=== PATIENT | female | born 1990 | race Caucasian/White ===

== ENCOUNTER → 2017-02-12 | Outpatient (CLI) | payer BC | LOC: MW.CHOBGYN 09:28 | PROVIDERS: ATTEND Nurse Practitioner Women's Health | DX: N89.8 Other specified noninflammatory disorders of vagina (principal) | CPT/HCPCS: 87480; 87510; 87660 ==

== ENCOUNTER 2019-03-06 02:06 | Inpatient (IN) | payer BC ==
[2019-03-06] MEDS ORDERED: Ampicillin 2 GM in Sodium Chloride 0.9% 100 ML IV ONE (03:04)
[2019-03-06] MEDS ORDERED: Tranexamic Acid 1,000 MG in Sodium Chloride 0.9% 100 ML IV PRN (03:04)
[2019-03-06] MEDS ORDERED: Methylergonovine 0.2 MG/1 ML Amp IM PRN (03:04)
[2019-03-06] MEDS ORDERED: Misoprostol 200 MCG Tab PO PRN (03:04)
[2019-03-06] MEDS ORDERED: Carboprost Tromethamine 250 MCG/1 ML Amp IM PRN (03:04)
[2019-03-06] MEDS ORDERED: Sodium Chloride 0.9% 10 ML Syringe FLUSH PRN (03:04)
[2019-03-06] MEDS ORDERED: Water For Irrigation,Sterile 1,000 ML Container IRR PRN (03:04)
[2019-03-06] MEDS ORDERED: Nalbuphine 10 MG/1 ML Vial IVPUSH PRN (03:04)
[2019-03-06] MEDS ORDERED: Sodium Chloride 0.9% 2.5 ML Syringe FLUSH PRN (03:04)
[2019-03-06] MEDS ORDERED: Lidocaine 1% 50 ML MDV INJECT PRN (03:04)
[2019-03-06] MEDS ORDERED: Butorphanol 1 MG/ML SDV IVPUSH PRN (03:04)
[2019-03-06] MEDS ORDERED: Sodium Chloride 0.9% 10 ML SDV IV PRN (03:04)
[2019-03-06] MEDS ORDERED: Oxytocin/0.9 % Sodium Chloride 30 UNIT/500 ML BAG IV SCH ×3 (03:15→16:00)
[2019-03-06] MEDS: Lactated Ringers 1,000 ML IV SCH ×4 (03:54→17:52)
[2019-03-06] MEDS ORDERED: Terbutaline 1 MG/ML SDV SUBCUT PRN (07:28)
[2019-03-06] MEDS ORDERED: Misoprostol 25 MCG (1/4 of 100 MCG) Tab PO PRN (07:28)
[2019-03-06] MEDS: Ampicillin 1 GM in Sodium Chloride 0.9% 50 ML IV SCH ×4 (07:41→20:01)
[2019-03-06] MEDS ORDERED: Lidocaine HCl/EPINEPHrine 5 ML IJ ONE (12:16)
--- NOTE | 2019-03-06 12:27 | PCM.PREANE ---
Preanesthetic Assessment - Anesthesia/Transfusion/Family Hx Anesthesia History: Prior Anesthesia Without Reaction Family History of Anesthesia Reaction: No Transfusion History: No Prior Transfusion(s) - Review of Systems General: No Symptoms Pulmonary: No Symptoms Cardiovascular: No Symptoms Gastrointestinal: No Symptoms Neurological: No Symptoms Other: Reports: None - Physical Assessment Height: 5 ft 6 in Weight: 87.997 kg ASA Class: 2 Mental Status: Alert & Oriented x3 Airway Class: Mallampati = 2 Dentition: Reports: Normal Dentition Thyro-Mental Finger Breadths: 3 Mouth Opening Finger Breadths: 3 ROM/Head Extension: Full Lungs: Clear to Auscultation, Normal Respiratory Effort Cardiovascular: Regular Rate, Regular Rhythm - Lab Values: Laboratory Last Values WBC 10.69 K/uL (4.0-11.0) 03/06/19 03:21 RBC 3.86 M/uL (4.30-5.90) L 03/06/19 03:21 Hgb 11.1 g/dL (12.0-16.0) L 03/06/19 03:21 Hct 32.2 % (36.0-46.0) L 03/06/19 03:21 MCV 83.4 fL (80.0-98.0) 03/06/19 03:21 MCH 28.8 pg (27.0-32.0) 03/06/19 03:21 MCHC 34.5 g/dL (31.0-37.0) 03/06/19 03:21 RDW Std Deviation 40.9 fl (28.0-62.0) 03/06/19 03:21 RDW Coeff of Maxine 14 % (11.0-15.0) 03/06/19 03:21 Plt Count 205 K/uL (150-400) 03/06/19 03:21 MPV 10.80 fL (7.40-12.00) 03/06/19 03:21 Nucleated RBC % 0.0 /100WBC 03/06/19 03:21 Nucleated RBCs # 0 K/uL 03/06/19 03:21 Membrane Rupture POSITIVE 03/06/19 02:04 Blood Type O POSITIVE 03/06/19 03:21 Antibody Screen NEGATIVE 03/06/19 03:21 - Allergies Allergies/Adverse Reactions: Allergies Allergy/AdvReac Type Severity Reaction Status Date / Time tobramycin Allergy Facial Verified 03/06/19 07:39 Swelling - Acknowledgements Anesthesia Type Planned: Epidural Pt an Appropriate Candidate for the Planned Anesthesia: Yes Alternatives and Risks of Anesthesia Discussed w Pt/Guardian: Yes Pt/Guardian Understands and Agrees with Anesthesia Plan: Yes PreAnesthesia Questionnaire - Past Health History Medical/Surgical History: Denies Medical/Surgical History HEENT History: Reports: Impaired Vision Cardiovascular History: Reports: None Respiratory History: Reports: None Gastrointestinal History: Reports: Colon Polyp, GERD Genitourinary History: Reports: None 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 Endocrine/Metabolic History: Reports: Obesity/BMI 30+ Hematologic History: Reports: Anemia Immunologic History: Reports: None Oncologic (Cancer) History: Reports: None Dermatologic History: Reports: None - Infectious Disease History Infectious Disease History: Reports: Chicken Pox, Mononucleosis - Past Surgical History HEENT Surgical History: Reports: Adenoidectomy, Tonsillectomy GI Surgical History: Reports: Colonoscopy, Other (See Below) Other GI Surgeries/Procedures: benign polyps Musculoskeletal Surgical History: Reports: Arthroscopic Knee, Other (See Below) Other Musculoskeletal Surgeries/Procedures:: left ACL repair done 2005 - SUBSTANCE USE Smoking Status *Q: Former Smoker Tobacco Use Within Last Twelve Months: Cigarettes Second Hand Smoke Exposure: No Recreational Drug Use History: Yes Recreational Drug Type: Reports: Marijuana/Hashish - HOME MEDS Home Medications: Home Meds Acetaminophen [Tylenol] 325 mg PO PRN 03/06/19 [History] Vits #93/Iron Fum/FA [ Formula Tablet] 1 each PO DAILY [History] - CURRENT (IN HOUSE) MEDS Current Meds: Current Medications Butorphanol Tartrate (Stadol) 1 mg IVPUSH Q1H PRN PRN Reason: Pain Carboprost Tromethamine (Hemabate Ds) 250 mcg IM ASDIRECTED PRN PRN Reason: Post Hemorrhage Tranexamic Acid 1,000 mg/ (Sodium Chloride) 110 mls @ 660 mls/hr IV ONETIME PRN PRN Reason: Bleeding Lactated Ringer's (Ringers, Lactated) 1,000 mls @ 150 mls/hr IV ASDIRECTED DOTTIE Last Admin: 03/06/19 03:54 Dose: 150 mls/hr Oxytocin/Sodium Chloride (Oxytocin 30 Unit/500 Ml-Ns) 30 unit in 500 mls @ 500 mls/hr IV TITRATE DOTTIE Ampicillin Sodium 1 gm/ Sodium (Chloride) 50 mls @ 100 mls/hr IV Q4H [facility] Last Admin: 03/06/19 11:52 Dose: 100 mls/hr Oxytocin/Sodium Chloride (Oxytocin 30 Unit/500 Ml-Ns) 30 unit in 500 mls @ 2 mls/hr IV TITRATE DOTTIE; Protocol Lidocaine HCl (Xylocaine 1%) 50 ml INJECT ONETIME PRN PRN Reason: Laceration repair Methylergonovine Maleate (Methergine) 0.2 mg IM ASDIRECTED PRN PRN Reason: Post Hemorrhage Misoprostol (Cytotec) 200 mcg PO ONETIME PRN PRN Reason: Post Hemorrhage Misoprostol (Cytotec) 25 mcg PO ONETIME PRN PRN Reason: Cervical Ripening Last Admin: 03/06/19 07:41 Dose: 25 mcg Nalbuphine HCl (Nubain) 10 mg IVPUSH Q1H PRN PRN Reason: Pain (severe 7-10) Sodium Chloride (Saline Flush) 10 ml FLUSH ASDIRECTED PRN PRN Reason: Keep Vein Open Sodium Chloride (Saline Flush) 2.5 ml FLUSH ASDIRECTED PRN PRN Reason: Keep Vein Open Sodium Chloride (Normal Saline) 10 ml IV ASDIRECTED PRN PRN Reason: IV Use Sterile Water (Sterile Water For Irrigation) 1,000 ml IRR ASDIRECTED PRN PRN Reason: delivery Terbutaline Sulfate (Brethine) 0.25 mg SUBCUT ASDIRECTED PRN PRN Reason: Tacysystole Stop: 03/07/19 07:29 Discontinued Medications Ampicillin Sodium 2 gm/ Sodium (Chloride) 100 mls @ 200 mls/hr IV ONETIME ONE Stop: 03/06/19 03:33 Last Admin: 03/06/19 03:58 Dose: 200 mls/hr Fentanyl/Bupivacaine HCl (Jxlrimia-Buxvi-Sk 2 Mcg/Ml-0.125%) Confirm Administered Dose 100 mls @ as directed .ROUTE .STK-MED ONE Stop: 03/06/19 12:17 Lidocaine/Epinephrine (Lidocaine 1.5%-Epi 1:200,000) Confirm Administered Dose 5 ml IJ .STK-MED ONE Stop: 03/06/19 12:17
--- NOTE | 2019-03-06 22:15 | PCM.DEL ---
L & D Note - General Info Date of Service: 03/06/19 - Delivery Note Labor: Spontaneous Cervical Ripening Method: Misoprostil, Oxytocin Delivery Outcome: Livebirth Infant Delivery Method: Spontaneous Vaginal Delivery-Single Presentation: Vertex Nuchal Cord: None Anesthesia Type: Epidural Episiotomy Type: None Laceration: 1st Degree, Labial Suture size: 4-0 (right labial laceration was bleeding from a small area. Small suture placed. No other bleeding and other labial lacerations unrepaired. ) - General Info Date of Service: 03/06/19 - Patient Data Weight - Most Recent: 87.997 kg Lab Results Last 24 Hours: Laboratory Results - last 24 hr 03/06/19 03/06/19 03/06/19 Range/Units 02:04 03:21 03:21 WBC 10.69 (4.0-11.0) K/uL RBC 3.86 L (4.30-5.90) M/uL Hgb 11.1 L (12.0-16.0) g/dL Hct 32.2 L (36.0-46.0) % MCV 83.4 (80.0-98.0) fL MCH 28.8 (27.0-32.0) pg MCHC 34.5 (31.0-37.0) g/dL RDW Std Deviation 40.9 (28.0-62.0) fl RDW Coeff of Maxine 14 (11.0-15.0) % Plt Count 205 (150-400) K/uL MPV 10.80 (7.40-12.00) fL Nucleated RBC % 0.0 /100WBC Nucleated RBCs # 0 K/uL Membrane Rupture POSITIVE Blood Type O POSITIVE Antibody Screen NEGATIVE Med Orders - Current: Current Medications Butorphanol Tartrate (Stadol) 1 mg IVPUSH Q1H PRN PRN Reason: Pain Carboprost Tromethamine (Hemabate Ds) 250 mcg IM ASDIRECTED PRN PRN Reason: Post Hemorrhage Tranexamic Acid 1,000 mg/ (Sodium Chloride) 110 mls @ 660 mls/hr IV ONETIME PRN PRN Reason: Bleeding Lactated Ringer's (Ringers, Lactated) 1,000 mls @ 150 mls/hr IV ASDIRECTED DOTTIE Last Admin: 03/06/19 17:52 Dose: 150 mls/hr Oxytocin/Sodium Chloride (Oxytocin 30 Unit/500 Ml-Ns) 30 unit in 500 mls @ 500 mls/hr IV TITRATE DOTTIE Ampicillin Sodium 1 gm/ Sodium (Chloride) 50 mls @ 100 mls/hr IV Q4H DOTTIE Last Admin: 03/06/19 20:01 Dose: 100 mls/hr Oxytocin/Sodium Chloride (Oxytocin 30 Unit/500 Ml-Ns) 30 unit in 500 mls @ 2 mls/hr IV TITRATE DOTTIE; Protocol Oxytocin/Sodium Chloride (Oxytocin 30 Unit/500 Ml-Ns) 30 unit in 500 mls @ 2 mls/hr IV TITRATE DOTTIE; Protocol Last Titration: 03/06/19 19:03 Dose: 6 munits/min, 6 mls/hr Lidocaine HCl (Xylocaine 1%) 50 ml INJECT ONETIME PRN PRN Reason: Laceration repair Methylergonovine Maleate (Methergine) 0.2 mg IM ASDIRECTED PRN PRN Reason: Post Hemorrhage Misoprostol (Cytotec) 200 mcg PO ONETIME PRN PRN Reason: Post Hemorrhage Misoprostol (Cytotec) 25 mcg PO ONETIME PRN PRN Reason: Cervical Ripening Last Admin: 03/06/19 07:41 Dose: 25 mcg Nalbuphine HCl (Nubain) 10 mg IVPUSH Q1H PRN PRN Reason: Pain (severe 7-10) Sodium Chloride (Saline Flush) 10 ml FLUSH ASDIRECTED PRN PRN Reason: Keep Vein Open Sodium Chloride (Saline Flush) 2.5 ml FLUSH ASDIRECTED PRN PRN Reason: Keep Vein Open Sodium Chloride (Normal Saline) 10 ml IV ASDIRECTED PRN PRN Reason: IV Use Sterile Water (Sterile Water For Irrigation) 1,000 ml IRR ASDIRECTED PRN PRN Reason: delivery Terbutaline Sulfate (Brethine) 0.25 mg SUBCUT ASDIRECTED PRN PRN Reason: Tacysystole Stop: 03/07/19 07:29 Discontinued Medications Ampicillin Sodium 2 gm/ Sodium (Chloride) 100 mls @ 200 mls/hr IV ONETIME ONE Stop: 03/06/19 03:33 Last Admin: 03/06/19 03:58 Dose: 200 mls/hr Fentanyl/Bupivacaine HCl (Gbctyrft-Xxqix-Az 2 Mcg/Ml-0.125%) Confirm Administered Dose 100 mls @ as directed .ROUTE .STK-MED ONE Stop: 03/06/19 12:17 Fentanyl/Bupivacaine HCl (Uchtncqz-Lntxy-Tf 2 Mcg/Ml-0.125%) Confirm Administered Dose 100 mls @ as directed .ROUTE .STK-MED ONE Stop: 03/06/19 21:31 Lidocaine/Epinephrine (Lidocaine 1.5%-Epi 1:200,000) Confirm Administered Dose 5 ml IJ .STK-MED ONE Stop: 03/06/19 12:17 - Problem List & Annotations (1) Vaginal delivery SNOMED Code(s): 343339614 Code(s): O80 - ENCOUNTER FOR FULL-TERM UNCOMPLICATED DELIVERY Status: Acute Current Visit: Yes (2) Rupture of membranes with delay of delivery SNOMED Code(s): 720291609, 299620640 Code(s): O42.90 - ADEOLA ROM, 7TH0 BETW RUPT & ONST LABR, UNSP WEEKS OF GEST Status: Acute Current Visit: Yes - Problem List Review Problem List Initiated/Reviewed/Updated: Yes - My Orders Last 24 Hours: My Active Orders 03/06/19 02:18 Patient Status [ADT] Routine Non Stress Test [RC] PER UNIT ROUTINE Up ad Linda [RC] ASDIRECTED Vaginal Exam [RC] Click to Edit Vital Signs [RC] PER UNIT ROUTINE Resuscitation Status Routine 03/06/19 03:04 Patient Status [ADT] Routine Heart Tones [RC] CONTINUOUS Non Stress Test [RC] PER UNIT ROUTINE May Shower [RC] ASDIRECTED Notify Provider [RC] PRN Butorphanol [Stadol] 1 mg IVPUSH Q1H PRN Carboprost Tromethamine [Hemabate DS] 250 mcg IM ASDIRECTED PRN Lidocaine 1% [Xylocaine 1%] 50 ml INJECT ONETIME PRN Methylergonovine [Methergine] 0.2 mg IM ASDIRECTED PRN Nalbuphine [Nubain] 10 mg IVPUSH Q1H PRN Sodium Chloride 0.9% [Normal Saline] 10 ml IV ASDIRECTED PRN Sodium Chloride 0.9% [Saline Flush] 10 ml FLUSH ASDIRECTED PRN Sodium Chloride 0.9% [Saline Flush] 2.5 ml FLUSH ASDIRECTED PRN Tranexamic Acid [Cyklokapron] 1,000 mg Sodium Chloride 0.9% [Normal Saline] 100 ml IV ONETIME Water For Irrigation,Sterile [Sterile Water for Irrigation] 1,000 ml IRR ASDIRECTED PRN miSOPROStol [Cytotec] 200 mcg PO ONETIME PRN Scalp Electrode [WOMSER] Per Unit Routine Peripheral IV Insertion Adult [OM.PC] Routine 03/06/19 03:15 Lactated Ringers [Ringers, Lactated] 1,000 ml IV ASDIRECTED Oxytocin/0.9 % Sodium Chloride [Oxytocin 30 Unit/500 ML-NS] 30 unit in 500 ml IV TITRATE 03/06/19 07:28 Bedrest Bathroom Privileges [RC] ASDIRECTED Communication Order [RC] ASDIRECTED Communication Order [RC] ASDIRECTED Communication Order [RC] ASDIRECTED Notify Provider [RC] PRN Notify Provider [RC] STAT Oxygen Therapy [RC] ASDIRECTED Vaginal Exam [RC] PRN Terbutaline [Brethine] 0.25 mg SUBCUT ASDIRECTED PRN miSOPROStol [Cytotec] 25 mcg PO ONETIME PRN 03/06/19 07:30 Oxytocin/0.9 % Sodium Chloride [Oxytocin 30 Unit/500 ML-NS] 30 unit in 500 ml IV TITRATE Medication Administration Instruction [OM.PC] Q3H 03/06/19 16:00 Oxytocin/0.9 % Sodium Chloride [Oxytocin 30 Unit/500 ML-NS] 30 unit in 500 ml IV TITRATE 03/06/19 Breakfast Clear Liquid Diet [DIET] - Assessment Assessment:: Healthy . Pt had ROM prior to onset of labor. oral cytotec x1, and then oxytocin. - Plan Plan:: Mother and baby both well, to PP recovery.
[2019-03-06] MEDS ORDERED: Ibuprofen 400 MG Tab PO PRN (22:17)
[2019-03-06] MEDS ORDERED: Bisacodyl 10 MG Supp RECTAL PRN (22:17)
[2019-03-06] MEDS ORDERED: oxyCODONE 5 MG Tab PO PRN (22:17)
[2019-03-06] MEDS ORDERED: Acetaminophen 500 MG Tab PO PRN ×2 (22:17)
[2019-03-06] MEDS ORDERED: Benzocaine/Menthol 20%-0.5% Spray 78 GM Cannister TOP PRN (22:17)
[2019-03-06] MEDS ORDERED: Lanolin 100% Cream 7 GM Tube TOP PRN (22:17)
[2019-03-06] MEDS ORDERED: Witch Hazel Medicated Pads 40/Jar TOP PRN (22:17)
[2019-03-06] MEDS: Docusate Sodium 100 MG Cap PO PRN (23:03)
[2019-03-06] MEDS: Ibuprofen 800 MG Tab PO PRN (23:03)
[2019-03-07] MEDS: Ibuprofen 800 MG Tab PO PRN ×2 (07:43→20:32)
[2019-03-07] MEDS: Docusate Sodium 100 MG Cap PO PRN ×2 (08:21→20:32)
--- NOTE | 2019-03-07 08:23 | PCM.PNPP ---
- General Info Date of Service: 03/07/19 Functional Status: Reports: Pain Controlled, Tolerating Diet, Ambulating, Urinating - Review of Systems General: Denies: Fever, Weakness, Fatigue Pulmonary: Denies: Shortness of Breath, Pleuritic Chest Pain, Cough Cardiovascular: Denies: Chest Pain, Palpitations, Dyspnea on Exertion Gastrointestinal: Denies: Abdominal Pain Genitourinary: Denies: Dysuria - General Info Date of Service: 03/07/19 - Patient Data Vital Signs - Most Recent: Last Vital Signs Temp 36.6 C 03/07/19 07:45 Pulse 71 03/07/19 07:45 Resp 16 03/07/19 07:45 BP 121/76 03/07/19 07:45 Pulse Ox 96 03/07/19 07:45 Weight - Most Recent: 87.997 kg Lab Results - Last 24 Hours: Laboratory Results - last 24 hr 03/07/19 Range/Units 05:39 Hgb 9.6 L (12.0-16.0) g/dL Hct 28.0 L (36.0-46.0) % Med Orders - Current: Current Medications Acetaminophen (Tylenol Extra Strength) 500 mg PO Q4H PRN PRN Reason: Pain Acetaminophen (Tylenol Extra Strength) 1,000 mg PO Q4H PRN PRN Reason: Pain Benzocaine/Menthol (Dermoplast Pain Relief 20%-0.5% [place]) 78 gm TOP ASDIRECTED PRN PRN Reason: Perineal Comfort Measure Last Admin: 03/06/19 23:05 Dose: 1 canister Bisacodyl (Dulcolax) 10 mg RECTAL ONETIME PRN PRN Reason: Constipation Docusate Sodium (Colace) 100 mg PO BID PRN PRN Reason: Constipation Last Admin: 03/06/19 23:03 Dose: 100 mg Emollient Ointment (Lansinoh Hpa) 0 gm TOP ASDIRECTED PRN PRN Reason: Sore Nipples Last Admin: 03/06/19 23:07 Dose: 1 tube Ibuprofen (Motrin) 400 mg PO Q4H PRN PRN Reason: Pain Ibuprofen (Motrin) 800 mg PO Q6H PRN PRN Reason: Pain Last Admin: 03/07/19 07:43 Dose: 800 mg Oxycodone HCl (Oxycodone) 5 mg PO Q2H PRN PRN Reason: Pain Witch Maeve (Tucks) 1 pad TOP ASDIRECTED PRN PRN Reason: comfort care Last Admin: 03/06/19 23:06 Dose: 1 tub Discontinued Medications Butorphanol Tartrate (Stadol) 1 mg IVPUSH Q1H PRN PRN Reason: Pain Carboprost Tromethamine (Hemabate Ds) 250 mcg IM ASDIRECTED PRN PRN Reason: Post Hemorrhage Tranexamic Acid 1,000 mg/ (Sodium Chloride) 110 mls @ 660 mls/hr IV ONETIME PRN PRN Reason: Bleeding Ampicillin Sodium 2 gm/ Sodium (Chloride) 100 mls @ 200 mls/hr IV ONETIME ONE Stop: 03/06/19 03:33 Last Admin: 03/06/19 03:58 Dose: 200 mls/hr Lactated Ringer's (Ringers, Lactated) 1,000 mls @ 150 mls/hr IV ASDIRECTED DOTTIE Last Admin: 03/06/19 17:52 Dose: 150 mls/hr Oxytocin/Sodium Chloride (Oxytocin 30 Unit/500 Ml-Ns) 30 unit in 500 mls @ 500 mls/hr IV TITRATE DOTTIE Last Admin: 03/06/19 21:43 Dose: 500 mls/hr Ampicillin Sodium 1 gm/ Sodium (Chloride) 50 mls @ 100 mls/hr IV Q4H DOTTIE Last Admin: 03/06/19 20:01 Dose: 100 mls/hr Oxytocin/Sodium Chloride (Oxytocin 30 Unit/500 Ml-Ns) 30 unit in 500 mls @ 2 mls/hr IV TITRATE DOTTIE; Protocol Fentanyl/Bupivacaine HCl (Gbtzvabe-Bvrrx-Nt 2 Mcg/Ml-0.125%) Confirm Administered Dose 100 mls @ as directed .ROUTE .STK-MED ONE Stop: 03/06/19 12:17 Oxytocin/Sodium Chloride (Oxytocin 30 Unit/500 Ml-Ns) 30 unit in 500 mls @ 2 mls/hr IV TITRATE DOTTIE; Protocol Last Titration: 03/06/19 21:43 Dose: 0 munits/min, 0 mls/hr Fentanyl/Bupivacaine HCl (Kyinfouu-Otmqs-Pg 2 Mcg/Ml-0.125%) Confirm Administered Dose 100 mls @ as directed .ROUTE .STK-MED ONE Stop: 03/06/19 21:31 Lidocaine HCl (Xylocaine 1%) 50 ml INJECT ONETIME PRN PRN Reason: Laceration repair Lidocaine/Epinephrine (Lidocaine 1.5%-Epi 1:200,000) Confirm Administered Dose 5 ml IJ .STK-MED ONE Stop: 03/06/19 12:17 Methylergonovine Maleate (Methergine) 0.2 mg IM ASDIRECTED PRN PRN Reason: Post Hemorrhage Misoprostol (Cytotec) 200 mcg PO ONETIME PRN PRN Reason: Post Hemorrhage Misoprostol (Cytotec) 25 mcg PO ONETIME PRN PRN Reason: Cervical Ripening Last Admin: 03/06/19 07:41 Dose: 25 mcg Nalbuphine HCl (Nubain) 10 mg IVPUSH Q1H PRN PRN Reason: Pain (severe 7-10) Sodium Chloride (Saline Flush) 10 ml FLUSH ASDIRECTED PRN PRN Reason: Keep Vein Open Sodium Chloride (Saline Flush) 2.5 ml FLUSH ASDIRECTED PRN PRN Reason: Keep Vein Open Sodium Chloride (Normal Saline) 10 ml IV ASDIRECTED PRN PRN Reason: IV Use Sterile Water (Sterile Water For Irrigation) 1,000 ml IRR ASDIRECTED PRN PRN Reason: delivery Last Admin: 03/06/19 22:16 Dose: 1,000 ml Terbutaline Sulfate (Brethine) 0.25 mg SUBCUT ASDIRECTED PRN PRN Reason: Tacysystole Stop: 03/07/19 07:29 - Interaction Infant Disposition, : in Room with Family Infant Interaction: Holding Infant Infant Feeding: Breastfed Infant; Nursed Well Support Person: Significant Other - Recovery Exam Fundal Tone: Firm Fundal Level: 1 Fingerbreadths Below Umbilicus Fundal Placement: Midline Lochia Amount: Small Lochia Color: Rubra/Red Bladder Status: Voiding Urinary Elimination: Voided - Exam General: Alert, Oriented Neck: Supple Lungs: Clear to Auscultation, Normal Respiratory Effort Cardiovascular: Regular Rate, Regular Rhythm GI/Abdominal Exam: Normal Bowel Sounds, Soft, Non-Tender, No Distention, No Mass Extremities: Normal Inspection, Normal Range of Motion, Normal Capillary Refill , Pedal Edema (trace) Skin: Warm, Dry, Intact - Problem List Review Problem List Initiated/Reviewed/Updated: Yes - Assessment Assessment:: PPD #1 s/p . Minimal pain and lochia. Breast feeding well. GBS + status. Anticipate discharge home tomorrow. - Plan Plan:: Continue post op cares. Anticipate discharge home tomorrow.
--- NOTE | 2019-03-08 07:25 | PCM48HPAN ---
Post Anesthesia Note - EVALUATION WITHIN 48HRS OF ANESTHETIC Vital Signs in Normal Range: Yes Patient Participated in Evaluation: Yes Respiratory Function Stable: Yes Airway Patent: Yes Cardiovascular Function Stable: Yes Hydration Status Stable: Yes Pain Control Satisfactory: Yes Nausea and Vomiting Control Satisfactory: Yes Mental Status Recovered: Yes Resp Rate: 16
[2019-03-08] MEDS: Ibuprofen 800 MG Tab PO PRN ×2 (08:04→15:47)
[2019-03-08] MEDS: Docusate Sodium 100 MG Cap PO PRN (08:06)
--- NOTE | 2019-03-08 10:43 | PCM.PNPP ---
- General Info Date of Service: 03/08/19 Functional Status: Reports: Pain Controlled, Tolerating Diet, Ambulating, Urinating - Review of Systems General: Denies: Fever, Weakness Pulmonary: Denies: Shortness of Breath Cardiovascular: Denies: Chest Pain, Palpitations, Lightheadedness Gastrointestinal: Denies: Abdominal Pain, Nausea, Vomiting Genitourinary: Denies: Flank Pain Musculoskeletal: Reports: No Symptoms Skin: Reports: No Symptoms Neurological: Reports: No Symptoms - General Info Date of Service: 03/08/19 - Patient Data Vital Signs - Most Recent: Last Vital Signs Temp 36.8 C 03/08/19 08:00 Pulse 71 03/08/19 08:00 Resp 16 03/08/19 08:00 BP 114/69 03/08/19 08:00 Pulse Ox 98 03/08/19 08:00 Weight - Most Recent: 87.997 kg Med Orders - Current: Current Medications Acetaminophen (Tylenol Extra Strength) 500 mg PO Q4H PRN PRN Reason: Pain Acetaminophen (Tylenol Extra Strength) 1,000 mg PO Q4H PRN PRN Reason: Pain Benzocaine/Menthol (Dermoplast Pain Relief 20%-0.5% [place]) 78 gm TOP ASDIRECTED PRN PRN Reason: Perineal Comfort Measure Last Admin: 03/06/19 23:05 Dose: 1 canister Bisacodyl (Dulcolax) 10 mg RECTAL ONETIME PRN PRN Reason: Constipation Docusate Sodium (Colace) 100 mg PO BID PRN PRN Reason: Constipation Last Admin: 03/08/19 08:06 Dose: 100 mg Emollient Ointment (Lansinoh Hpa) 0 gm TOP ASDIRECTED PRN PRN Reason: Sore Nipples Last Admin: 03/06/19 23:07 Dose: 1 tube Ibuprofen (Motrin) 400 mg PO Q4H PRN PRN Reason: Pain Ibuprofen (Motrin) 800 mg PO Q6H PRN PRN Reason: Pain Last Admin: 03/08/19 08:04 Dose: 800 mg Oxycodone HCl (Oxycodone) 5 mg PO Q2H PRN PRN Reason: Pain Witch Maeve (Tucks) 1 pad TOP ASDIRECTED PRN PRN Reason: comfort care Last Admin: 03/06/19 23:06 Dose: 1 tub Discontinued Medications Butorphanol Tartrate (Stadol) 1 mg IVPUSH Q1H PRN PRN Reason: Pain Carboprost Tromethamine (Hemabate Ds) 250 mcg IM ASDIRECTED PRN PRN Reason: Post Hemorrhage Tranexamic Acid 1,000 mg/ (Sodium Chloride) 110 mls @ 660 mls/hr IV ONETIME PRN PRN Reason: Bleeding Ampicillin Sodium 2 gm/ Sodium (Chloride) 100 mls @ 200 mls/hr IV ONETIME ONE Stop: 03/06/19 03:33 Last Admin: 03/06/19 03:58 Dose: 200 mls/hr Lactated Ringer's (Ringers, Lactated) 1,000 mls @ 150 mls/hr IV ASDIRECTED DOTTIE Last Admin: 03/06/19 17:52 Dose: 150 mls/hr Oxytocin/Sodium Chloride (Oxytocin 30 Unit/500 Ml-Ns) 30 unit in 500 mls @ 500 mls/hr IV TITRATE DOTTIE Last Admin: 03/06/19 21:43 Dose: 500 mls/hr Ampicillin Sodium 1 gm/ Sodium (Chloride) 50 mls @ 100 mls/hr IV Q4H DOTTIE Last Admin: 03/06/19 20:01 Dose: 100 mls/hr Oxytocin/Sodium Chloride (Oxytocin 30 Unit/500 Ml-Ns) 30 unit in 500 mls @ 2 mls/hr IV TITRATE DOTTIE; Protocol Fentanyl/Bupivacaine HCl (Ijvlokei-Guldp-Gx 2 Mcg/Ml-0.125%) Confirm Administered Dose 100 mls @ as directed .ROUTE .STK-MED ONE Stop: 03/06/19 12:17 Oxytocin/Sodium Chloride (Oxytocin 30 Unit/500 Ml-Ns) 30 unit in 500 mls @ 2 mls/hr IV TITRATE DOTTIE; Protocol Last Titration: 03/06/19 21:43 Dose: 0 munits/min, 0 mls/hr Fentanyl/Bupivacaine HCl (Boiantwb-Mblbz-Vm 2 Mcg/Ml-0.125%) Confirm Administered Dose 100 mls @ as directed .ROUTE .STK-MED ONE Stop: 03/06/19 21:31 Lidocaine HCl (Xylocaine 1%) 50 ml INJECT ONETIME PRN PRN Reason: Laceration repair Lidocaine/Epinephrine (Lidocaine 1.5%-Epi 1:200,000) Confirm Administered Dose 5 ml IJ .STK-MED ONE Stop: 03/06/19 12:17 Methylergonovine Maleate (Methergine) 0.2 mg IM ASDIRECTED PRN PRN Reason: Post Hemorrhage Misoprostol (Cytotec) 200 mcg PO ONETIME PRN PRN Reason: Post Hemorrhage Misoprostol (Cytotec) 25 mcg PO ONETIME PRN PRN Reason: Cervical Ripening Last Admin: 03/06/19 07:41 Dose: 25 mcg Nalbuphine HCl (Nubain) 10 mg IVPUSH Q1H PRN PRN Reason: Pain (severe 7-10) Sodium Chloride (Saline Flush) 10 ml FLUSH ASDIRECTED PRN PRN Reason: Keep Vein Open Sodium Chloride (Saline Flush) 2.5 ml FLUSH ASDIRECTED PRN PRN Reason: Keep Vein Open Sodium Chloride (Normal Saline) 10 ml IV ASDIRECTED PRN PRN Reason: IV Use Sterile Water (Sterile Water For Irrigation) 1,000 ml IRR ASDIRECTED PRN PRN Reason: delivery Last Admin: 03/06/19 22:16 Dose: 1,000 ml Terbutaline Sulfate (Brethine) 0.25 mg SUBCUT ASDIRECTED PRN PRN Reason: Tacysystole Stop: 03/07/19 07:29 - Infant Interaction Disposition, : in Room with Family Interaction: Holding Infant Infant Feeding: Breastfed Infant; Nursed Well Support Person: Significant Other - Recovery Exam Fundal Tone: Firm Fundal Level: 1 Fingerbreadths Below Umbilicus Fundal Placement: Midline Lochia Amount: Scant Lochia Color: Rubra/Red Perineum Description: Other (see below) Other Perinuem Description: First degree tear Episiotomy/Laceration: Approximated Bladder Status: Voiding Urinary Elimination: Voided - Exam General: Alert, Oriented Lungs: Normal Respiratory Effort Cardiovascular: Regular Rate, Regular Rhythm GI/Abdominal Exam: Normal Bowel Sounds, Soft, Non-Tender Extremities: Normal Inspection, Normal Range of Motion, Non-Tender, No Pedal Edema, Normal Capillary Refill Skin: Warm, Dry, Intact Neurological: No New Focal Deficit Psy/Mental Status: Alert, Normal Affect, Normal Mood - Problem List & Annotations (1) Vaginal delivery SNOMED Code(s): 287584468 Code(s): O80 - ENCOUNTER FOR FULL-TERM UNCOMPLICATED DELIVERY Status: Acute Current Visit: Yes - Problem List Review Problem List Initiated/Reviewed/Updated: Yes - Assessment Assessment:: PPD #2s/p . - Plan Plan:: Patient doing well overall, discharge to home today. Follow up at [facility] 6 weeks. INfection and bleeding warnings reviewed. Discharge instructions reviewed.
== END 2019-03-08 21:08 | disposition home or self-care (01) | DRG 560 ==
LOC: MW.OBCHECK 02:06 → MW.OB 02:11 → MW.OBCHECK 03:04 → MW.OB 03:04 → OBSVTOIN 21:40 → MW.OB 03-07 02:22
PROVIDERS: ADMIT Obstetrics & Gynecology; ATTEND Obstetrics & Gynecology
PROC: 10E0XZZ Delivery of Products of Conception, External Approach (ICD-10-PCS; principal; 2019-03-06)
PROC: 0UQMXZZ Repair Vulva, External Approach (ICD-10-PCS; principal; 2019-03-06)
PROC: 00HU33Z Insertion of Infusion Device into Spinal Canal, Percutaneous Approach (ICD-10-PCS; 2019-03-06)
PROC: 3E0R3BZ Introduction of Anesthetic Agent into Spinal Canal, Percutaneous Approach (ICD-10-PCS; 2019-03-06)
DX: O99.824 Streptococcus B carrier state complicating childbirth (principal); Z37.0 Single live birth; Z3A.39 39 weeks gestation of pregnancy; O70.0 First degree perineal laceration during delivery; O42.92 Full-term premature rupture of membranes, unspecified as to length of time between rupture and onset of labor; Z86.010 Personal history of colon polyps; O99.62 Diseases of the digestive system complicating childbirth; K21.9 Gastro-esophageal reflux disease without esophagitis; O99.214 Obesity complicating childbirth; E66.9 Obesity, unspecified; O99.02 Anemia complicating childbirth; D64.9 Anemia, unspecified; Z87.891 Personal history of nicotine dependence; Z88.1 Allergy status to other antibiotic agents
CPT/HCPCS: 36415; 51702; 59025; 59409; 84112; 85014; 85018; 85027; 86850; 86900; 86901; A9270-GY; J0290; J2590; J7030; J7050; J7120

== ENCOUNTER 2021-09-18 14:34 | Inpatient (IN) | payer BC ==
[2021-09-18] MEDS: Lactated Ringers 1,000 ML IV SCH ×4 (14:46→23:32)
[2021-09-18] MEDS ORDERED: Sodium Chloride 0.9% 2.5 ML Syringe FLUSH PRN (14:56)
[2021-09-18] MEDS ORDERED: Carboprost Tromethamine 250 MCG/1 ML Amp IM PRN (14:56)
[2021-09-18] MEDS ORDERED: Sodium Chloride 0.9% 10 ML Syringe FLUSH PRN (14:56)
[2021-09-18] MEDS ORDERED: Sodium Chloride 0.9% 10 ML SDV IV PRN (14:56)
[2021-09-18] MEDS ORDERED: Methylergonovine 0.2 MG/1 ML Amp IM PRN (14:56)
[2021-09-18] MEDS ORDERED: Butorphanol 1 MG/ML SDV IVPUSH PRN (14:56)
[2021-09-18] MEDS ORDERED: Tranexamic Acid 1,000 MG in Sodium Chloride 0.9% 100 ML IV PRN (14:56)
[2021-09-18] MEDS ORDERED: Lidocaine 1% 50 ML MDV INJECT PRN (14:56)
[2021-09-18] MEDS ORDERED: Ondansetron 4 MG/2 ML SDV IVPUSH PRN (14:56)
[2021-09-18] MEDS ORDERED: Terbutaline 1 MG/ML SDV SUBCUT PRN (14:56)
[2021-09-18] MEDS ORDERED: Water For Irrigation,Sterile 1,000 ML Container IRR PRN (14:56)
[2021-09-18] MEDS ORDERED: Misoprostol 25 MCG (1/4 of 100 MCG) Tab VAG PRN (14:56)
[2021-09-18] MEDS ORDERED: Misoprostol 200 MCG Tab PO PRN (14:56)
[2021-09-18] MEDS ORDERED: Nalbuphine 10 MG/1 ML Vial IVPUSH PRN (14:56)
[2021-09-18] MEDS ORDERED: Oxytocin/0.9 % Sodium Chloride 30 UNIT/500 ML BAG IV SCH ×2 (15:00)
[2021-09-18] MEDS ORDERED: Ropivacaine HCl/PF 200 ML ONE (21:15)
--- NOTE | 2021-09-18 21:33 | PCM.PREANE ---
Preanesthetic Assessment - Anesthesia/Transfusion/Family Hx Anesthesia History: Prior Anesthesia Without Reaction Family History of Anesthesia Reaction: No Transfusion History: No Prior Transfusion(s) - Review of Systems General: No Symptoms Pulmonary: No Symptoms, Other (Former Smoker) Cardiovascular: No Symptoms Gastrointestinal: No Symptoms, Other (GERD) Neurological: No Symptoms Other: Reports: None - Physical Assessment NPO Status Date: 09/18/21 NPO Status Time: 15:00 Height: 1.66 m Weight: 78.018 kg ASA Class: 2 Mental Status: Alert & Oriented x3 Airway Class: Mallampati = 2 Dentition: Reports: Normal Dentition Thyro-Mental Finger Breadths: 3 Mouth Opening Finger Breadths: 3 ROM/Head Extension: Full Lungs: Clear to Auscultation, Normal Respiratory Effort Cardiovascular: Regular Rate, Regular Rhythm - Lab Values: Laboratory Last Values WBC 9.13 K/uL (4.0-11.0) 09/18/21 14:45 RBC 4.00 M/uL (4.30-5.90) L 09/18/21 14:45 Hgb 11.8 g/dL (12.0-16.0) L 09/18/21 14:45 Hct 33.3 % (36.0-46.0) L 09/18/21 14:45 MCV 83.3 fL (80.0-98.0) 09/18/21 14:45 MCH 29.5 pg (27.0-32.0) 09/18/21 14:45 MCHC 35.4 g/dL (31.0-37.0) 09/18/21 14:45 RDW Std Deviation 39.2 fl (28.0-62.0) 09/18/21 14:45 RDW Coeff of Maxine 13 % (11.0-15.0) 09/18/21 14:45 Plt Count 205 K/uL (150-400) 09/18/21 14:45 MPV 10.80 fL (7.40-12.00) 09/18/21 14:45 Nucleated RBC % 0.0 /100WBC 09/18/21 14:45 Nucleated RBCs # 0 K/uL 09/18/21 14:45 Blood Type O POSITIVE 09/18/21 14:45 Antibody Screen NEGATIVE 09/18/21 14:45 - Allergies Allergies/Adverse Reactions: Allergies Allergy/AdvReac Type Severity Reaction Status Date / Time tobramycin Allergy Facial Verified 09/18/21 14:54 Swelling - Blood Blood Available: Yes Product(s) Available: PRBC (Type and Screen) - Anesthesia Plan Pre-Op Medication Ordered: None - Acknowledgements Anesthesia Type Planned: Epidural Pt an Appropriate Candidate for the Planned Anesthesia: Yes Alternatives and Risks of Anesthesia Discussed w Pt/Guardian: Yes Pt/Guardian Understands and Agrees with Anesthesia Plan: Yes PreAnesthesia Questionnaire - Past Health History Medical/Surgical History: Denies Medical/Surgical History HEENT History: Reports: Impaired Vision, Other (See Below) Other HEENT History: 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 ulcerative colitis, not currently being treated. 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 Endocrine/Metabolic History: Reports: Obesity/BMI 30+ Hematologic History: Reports: Anemia, Iron Deficiency Immunologic History: Reports: None Oncologic (Cancer) History: Reports: None Dermatologic History: Reports: None - Infectious Disease History Infectious Disease History: Reports: Chicken Pox, Mononucleosis, Novel Coronavirus - Past Surgical History HEENT Surgical History: Reports: Adenoidectomy, Tonsillectomy GI Surgical History: Reports: Colonoscopy, Other (See Below) Other GI Surgeries/Procedures: benign polyps, 2011. Musculoskeletal Surgical History: Reports: Arthroscopic Knee, Other (See Below) Other Musculoskeletal Surgeries/Procedures:: left ACL repair done 2005 - SUBSTANCE USE Tobacco Use Status *Q: Former Tobacco User Tobacco Use Within Last Twelve Months: Cigarettes Second Hand Smoke Exposure: No Recreational Drug Use History: Yes Recreational Drug Type: Reports: Marijuana/Hashish Recreational Drug Last Use: 10/2018 - HOME MEDS Home Medications: Home Meds Acetaminophen [Tylenol] 325 mg PO Q4H PRN 03/06/19 [History] Vits #93/Iron Fum/FA [ Formula Tablet] 1 each PO DAILY 03/06/19 [History] - CURRENT (IN HOUSE) MEDS Current Meds: Current Medications Butorphanol Tartrate (Butorphanol 1 Mg/Ml Sdv) 1 mg IVPUSH Q1H PRN PRN Reason: Pain (severe 7-10) Last Admin: 09/18/21 20:30 Dose: 1 mg Documented by: Carboprost Tromethamine (Carboprost Tromethamine 250 Mcg/1 Ml Amp) 250 mcg IM ASDIRECTED PRN PRN Reason: Post Hemorrhage Oxytocin/Sodium Chloride (Oxytocin 30 Unit In Ns 0.9% 500 Ml Premix) 30 unit in 500 mls @ 999 mls/hr IV TITRATE DOTTIE Tranexamic Acid 1,000 mg/ (Sodium Chloride) 110 mls @ 660 mls/hr IV ONETIME PRN PRN Reason: Bleeding Oxytocin/Sodium Chloride (Oxytocin 30 Unit In Ns 0.9% 500 Ml Premix) 30 unit in 500 mls @ 2 mls/hr IV TITRATE DOTTIE; Protocol Lactated Ringer's (Ringers, Lactated) 1,000 mls @ 150 mls/hr IV ASDIRECTED DOTTIE Last Admin: 09/18/21 21:18 Dose: 150 mls/hr Documented by: Lidocaine HCl (Lidocaine 1% 50 Ml Mdv) 50 ml INJECT ONETIME PRN PRN Reason: Laceration repair Methylergonovine Maleate (Methylergonovine 0.2 Mg/1 Ml Amp) 0.2 mg IM ASDIRECTED PRN PRN Reason: Post Hemorrhage Misoprostol (Misoprostol 200 Mcg Tab) 200 mcg PO ONETIME PRN PRN Reason: Post Hemorrhage Misoprostol (Misoprostol 25 Mcg (1/4 Of 100 Mcg) Tab) 25 mcg VAG ONETIME PRN PRN Reason: Cervical Ripening Last Admin: 09/18/21 15:52 Dose: 25 mcg Documented by: Nalbuphine HCl (Nalbuphine 10 Mg/1 Ml Vial) 10 mg IVPUSH Q1H PRN PRN Reason: Pain (severe 7-10) Ondansetron HCl (Ondansetron 4 Mg/2 Ml Sdv) 4 mg IVPUSH Q6H PRN PRN Reason: Nausea/Vomiting Sodium Chloride (Sodium Chloride 0.9% 10 Ml Syringe) 10 ml FLUSH ASDIRECTED PRN PRN Reason: Keep Vein Open Sodium Chloride (Sodium Chloride 0.9% 2.5 Ml Syringe) 2.5 ml FLUSH ASDIRECTED PRN PRN Reason: Keep Vein Open Sodium Chloride (Sodium Chloride 0.9% 10 Ml Sdv) 10 ml IV ASDIRECTED PRN PRN Reason: IV Use Sterile Water (Water For Irrigation,Sterile 1,000 Ml Container) 1,000 ml IRR ASDIRECTED PRN PRN Reason: delivery Terbutaline Sulfate (Terbutaline 1 Mg/Ml Sdv) 0.25 mg SUBCUT ASDIRECTED PRN PRN Reason: Tacysystole Discontinued Medications Ropivacaine (Naropin 0.2%) Confirm Administered Dose 200 mls @ as directed .ROUTE .[facility] Stop: 09/18/21 21:16
--- NOTE | 2021-09-18 21:35 | PCM.SN.2 ---
Time Documentation - Pre-Procedure Checklist Attending Provider Aware: Yes Chart Reviewed: Yes Consent Signed: Yes Labs Reviewed: Yes VS/FHR Reviewed: Yes Patient Identification Confirmation Method: Reports: Chart Visual, Verbal Patient Pt an Appropriate Candidate for the Planned Anesthesia: Yes Alternatives and Risks of Anesthesia Discussed w Pt/Guardian: Yes - Procedure Procedure Start Date: 09/18/21 Procedure Start Time: 21:[address]: Reports: Blood Pressure, Heart Rate, SPO2 Functional IV: Yes Safety Measures: Reports: Patient Identified, Procedure Verified, Site Verified, Procedure Time Out Patient Position: Reports: Sitting Prep: Reports: Betadine x3 Local Anesthetic: Reports: Intradermal Wheal w Lidocaine 1% (3 ML) Regional Placement Level: Reports: L3-4 Needle: Reports: 17 g Touhy Approach: Reports: Midline Technique: Reports: ALEXI Glass Syringe ALEXI Needle Depth (cm): 5 cm Parasthesia: Reports: None Fluid Obtained: Reports: None Catheter Depth at Skin (cm): 13 cm Test Dose Time: 21:10 Test Dose Medication: Reports: Lidocaine 1.5% w Epinephrine 1:200,000 (5ML) Test Dose Response: Reports: Negative Loading Dose Time: 21:23 Loading Dose Medication: Ropivicaine 0.2% Loading Dose Patient Position: Supine Continuous Infusion Start Time: 21:23 Continuous Infusion Medication: Ropivicaine 0.2% Continuous Infusion Rate: 12 Continuous Infusion PCS Bolus Option: 6 Continuous Infusion Lockout Dose (cc/hr): 15 Patient Position Post Placement: Reports: Supline/DAVIS Post-procedure Pain Level: 4 Level Achieved: t4 VS and FHR Monitored in Unit Post Placement: Yes Procedure End Date: 09/18/21 Procedure End Time: 22:02 Procedure Comment: Sterile technique used throughout.
[2021-09-18] MEDS ORDERED: ePHEDrine 50 MG/ML SDV IVPUSH PRN (21:36)
--- NOTE | 2021-09-18 21:36 | PCM.POSTAN ---
POST ANESTHESIA ASSESSMENT - MENTAL STATUS Mental Status: Alert, Oriented - RESPIRATORY Respiratory Status: Respiratory Rate WNL, Airway Patent, O2 Saturation Stable - CARDIOVASCULAR CV Status: Pulse Rate WNL, Blood Pressure Stable - GASTROINTESTINAL GI Status: No Symptoms - POST OP HYDRATION Hydration Status: Adequate & Stable
[2021-09-18] MEDS ORDERED: Ropivacaine/PF 400 MG/200 ML PCA EPIDUR SCH (21:45)
[2021-09-18] MEDS ORDERED: Sodium Chloride 0.9% 20 ML ONE (22:52)
[2021-09-18] MEDS ORDERED: ePHEDrine 50 MG/ML SDV ONE (22:52)
--- NOTE | 2021-09-18 22:55 | PCM.SN.2 ---
Time Documentation - Pre-Procedure Checklist Attending Provider Aware: Yes Chart Reviewed: Yes Consent Signed: Yes Labs Reviewed: Yes VS/FHR Reviewed: Yes Patient Identification Confirmation Method: Reports: Chart Visual, Verbal Patient Pt an Appropriate Candidate for the Planned Anesthesia: Yes Alternatives and Risks of Anesthesia Discussed w Pt/Guardian: Yes - Procedure Procedure Start Date: 09/18/21 Procedure Start Time: 22:[address]: Reports: Blood Pressure, Heart Rate, SPO2 Functional IV: Yes Safety Measures: Reports: Patient Identified, Procedure Verified, Site Verified, Procedure Time Out Patient Position: Reports: Sitting Prep: Reports: Betadine x3 Local Anesthetic: Reports: Intradermal Wheal w Lidocaine 1% (3 ml) Regional Placement Level: Reports: L3-4 Needle: Reports: 17 g Touhy Approach: Reports: Midline Technique: Reports: ALEXI Glass Syringe ALEXI Needle Depth (cm): 6.5 cm Parasthesia: Reports: None Fluid Obtained: Reports: None Catheter Depth at Skin (cm): 15 cm Test Dose Time: 22:41 Test Dose Medication: Reports: Lidocaine 1.5% w Epinephrine 1:200,000 (5 ml) Test Dose Response: Reports: Negative Loading Dose Time: 22:47 Loading Dose Medication: Ropivicaine 0.2% Loading Dose Patient Position: Supine Continuous Infusion Start Time: 22:47 Continuous Infusion Medication: Ropivicaine 0.2% Continuous Infusion Rate: 12 Continuous Infusion PCS Bolus Option: 6 Continuous Infusion Lockout Dose (cc/hr): 15 Patient Position Post Placement: Reports: Supline/DAVIS Post-procedure Pain Level: 4 Level Achieved: T4 VS and FHR Monitored in Unit Post Placement: Yes Procedure End Date: 09/18/21 Procedure End Time: 23:27 Procedure Comment: Pt stated to no releif with epidural despide two 6 ml bolus doses. Catheter removed with tip intact and replaced with current epidural. Steril technique maintained.
[2021-09-18] MEDS ORDERED: Ondansetron 4 MG/2 ML SDV ONE (22:57)
--- NOTE | 2021-09-19 03:20 | PCM.DEL ---
L & D Note - General Info Date of Service: 09/19/21 Mother's Due Date: 10/01/21 - Delivery Note Labor: Induced by Oxytocin (PROM with induction) Cervical Ripening Method: Misoprostil Delivery Outcome: Livebirth Delivery Mode: Spontaneous Presentation: Left Occiput Anterior (RHONDA) Nuchal Cord: None Prep: Other Anesthesia Type: Epidural Episiotomy Type: None Laceration: None Placenta: Intact, Spontaneous Cord: 3 Vessels Estimated Blood Loss: 200 Resuscitation Needed: No Kelley: Suctioned Score 1 min: 9 Score 5 min: 10 - General Info Date of Service: 09/19/21 - Patient Data Weight - Most Recent: 78.018 kg Lab Results Last 24 Hours: Laboratory Results - last 24 hr 09/18/21 09/18/21 Range/Units 14:45 14:45 WBC 9.13 (4.0-11.0) K/uL RBC 4.00 L (4.30-5.90) M/uL Hgb 11.8 L (12.0-16.0) g/dL Hct 33.3 L (36.0-46.0) % MCV 83.3 (80.0-98.0) fL MCH 29.5 (27.0-32.0) pg MCHC 35.4 (31.0-37.0) g/dL RDW Std Deviation 39.2 (28.0-62.0) fl RDW Coeff of Maxine 13 (11.0-15.0) % Plt Count 205 (150-400) K/uL MPV 10.80 (7.40-12.00) fL Nucleated RBC % 0.0 /100WBC Nucleated RBCs # 0 K/uL Blood Type O POSITIVE Antibody Screen NEGATIVE Med Orders - Current: Current Medications Butorphanol Tartrate (Butorphanol 1 Mg/Ml Sdv) 1 mg IVPUSH Q1H PRN PRN Reason: Pain (severe 7-10) Last Admin: 09/18/21 20:30 Dose: 1 mg Documented by: Carboprost Tromethamine (Carboprost Tromethamine 250 Mcg/1 Ml Amp) 250 mcg IM ASDIRECTED PRN PRN Reason: Post Hemorrhage Ephedrine Sulfate (Ephedrine 50 Mg/Ml Sdv) 10 mg IVPUSH Q1M PRN PRN Reason: Hypotension Oxytocin/Sodium Chloride (Oxytocin 30 Unit In Ns 0.9% 500 Ml Premix) 30 unit in 500 mls @ 999 mls/hr IV TITRATE DOTTIE Tranexamic Acid 1,000 mg/ (Sodium Chloride) 110 mls @ 660 mls/hr IV ONETIME PRN PRN Reason: Bleeding Oxytocin/Sodium Chloride (Oxytocin 30 Unit In Ns 0.9% 500 Ml Premix) 30 unit in 500 mls @ 2 mls/hr IV TITRATE DOTTIE; Protocol Last Titration: 09/19/21 02:22 Dose: 16 munits/min, 16 mls/hr Documented by: Lactated Ringer's (Ringers, Lactated) 1,000 mls @ 150 mls/hr IV ASDIRECTED DOTTIE Last Admin: 09/18/21 23:32 Dose: 150 mls/hr Documented by: Lidocaine HCl (Lidocaine 1% 50 Ml Mdv) 50 ml INJECT ONETIME PRN PRN Reason: Laceration repair Methylergonovine Maleate (Methylergonovine 0.2 Mg/1 Ml Amp) 0.2 mg IM ASDIRECTED PRN PRN Reason: Post Hemorrhage Miscellaneous Medication (Phenylephrine Hcl In 0.9% Nacl 1 Mg/10 Ml Syringe) 0.1 mg IVPUSH Q1M PRN PRN Reason: Hypotension Misoprostol (Misoprostol 200 Mcg Tab) 200 mcg PO ONETIME PRN PRN Reason: Post Hemorrhage Misoprostol (Misoprostol 25 Mcg (1/4 Of 100 Mcg) Tab) 25 mcg VAG ONETIME PRN PRN Reason: Cervical Ripening Last Admin: 09/18/21 15:52 Dose: 25 mcg Documented by: Nalbuphine HCl (Nalbuphine 10 Mg/1 Ml Vial) 10 mg IVPUSH Q1H PRN PRN Reason: Pain (severe 7-10) Ondansetron HCl (Ondansetron 4 Mg/2 Ml Sdv) 4 mg IVPUSH Q6H PRN PRN Reason: Nausea/Vomiting Last Admin: 09/18/21 22:59 Dose: 4 mg Documented by: Ropivacaine (Ropivacaine/Pf 400 Mg/200 Ml [employer] Technical Systems Specialist) 400 mg EPIDUR ASDIRECTED DOTTIE Sodium Chloride (Sodium Chloride 0.9% 10 Ml Syringe) 10 ml FLUSH ASDIRECTED PRN PRN Reason: Keep Vein Open Sodium Chloride (Sodium Chloride 0.9% 2.5 Ml Syringe) 2.5 ml FLUSH ASDIRECTED PRN PRN Reason: Keep Vein Open Sodium Chloride (Sodium Chloride 0.9% 10 Ml Sdv) 10 ml IV ASDIRECTED PRN PRN Reason: IV Use Sterile Water (Water For Irrigation,Sterile 1,000 Ml Container) 1,000 ml IRR ASDIRECTED PRN PRN Reason: delivery Terbutaline Sulfate (Terbutaline 1 Mg/Ml Sdv) 0.25 mg SUBCUT ASDIRECTED PRN PRN Reason: Tacysystole Discontinued Medications Ephedrine Sulfate (Ephedrine 50 Mg/Ml Sdv) Confirm Administered Dose 50 mg .ROUTE .STK-MED ONE Stop: 09/18/21 22:53 Ropivacaine (Naropin 0.2%) Confirm Administered Dose 200 mls @ as directed .ROUTE .STK-MED ONE Stop: 09/18/21 21:16 Last Admin: 09/18/21 23:29 Dose: Not Given Documented by: Sodium Chloride (Normal Saline) Confirm Administered Dose 20 mls @ as directed .ROUTE .STK-MED ONE Stop: 09/18/21 22:53 Ondansetron HCl (Ondansetron 4 Mg/2 Ml Sdv) Confirm Administered Dose 4 mg .ROUTE .STK-MED ONE Stop: 09/18/21 22:58 - Problem List & Annotations (1) Rupture of membranes with delay of delivery SNOMED Code(s): 12802673 Code(s): O42.90 - ADEOLA ROM, 7TH0 BETW RUPT & ONST LABR, UNSP WEEKS OF GEST Status: Acute Current Visit: Yes (2) Vaginal delivery SNOMED Code(s): 614755248 Code(s): O80 - ENCOUNTER FOR FULL-TERM UNCOMPLICATED DELIVERY Status: Acute Current Visit: Yes - Problem List Review Problem List Initiated/Reviewed/Updated: Yes - My Orders Last 24 Hours: My Active Orders 09/18/21 14:45 RPR (SYPHILIS SERO) W/ RFLX [REF] Routine 09/18/21 14:56 Patient Status [ADT] Routine Bedrest Bathroom Privileges [RC] ASDIRECTED Communication Order [RC] ASDIRECTED Communication Order [RC] ASDIRECTED Communication Order [RC] ASDIRECTED Heart Tones [RC] CONTINUOUS Non Stress Test [RC] PER UNIT ROUTINE May Shower [RC] ASDIRECTED Notify Provider [RC] PRN Notify Provider [RC] PRN Notify Provider [RC] PRN Notify Provider [RC] STAT Oxygen Therapy [RC] ASDIRECTED Peripheral IV Care [RC] PRN Up ad Linda [RC] ASDIRECTED Vaginal Exam [RC] PRN Vaginal Exam [RC] PRN Vital Signs [RC] PER UNIT ROUTINE Butorphanol [Stadol] 1 mg IVPUSH Q1H PRN Carboprost Tromethamine [Hemabate DS] 250 mcg IM ASDIRECTED PRN Lidocaine 1% [Xylocaine 1%] 50 ml INJECT ONETIME PRN Methylergonovine [Methergine] 0.2 mg IM ASDIRECTED PRN Nalbuphine [Nubain] 10 mg IVPUSH Q1H PRN Ondansetron [Zofran] 4 mg IVPUSH Q6H PRN Sodium Chloride 0.9% [Normal Saline] 10 ml IV ASDIRECTED PRN Sodium Chloride 0.9% [Saline Flush] 10 ml FLUSH ASDIRECTED PRN Sodium Chloride 0.9% [Saline Flush] 2.5 ml FLUSH ASDIRECTED PRN Terbutaline [Brethine] 0.25 mg SUBCUT ASDIRECTED PRN Tranexamic Acid [Cyklokapron] 1,000 mg Sodium Chloride 0.9% [Normal Saline] 100 ml IV ONETIME Water For Irrigation,Sterile [Sterile Water for Irrigation] 1,000 ml IRR ASDIRECTED PRN miSOPROStoL [Cytotec] 200 mcg PO ONETIME PRN miSOPROStoL [Cytotec] 25 mcg VAG ONETIME PRN Scalp Electrode [WOMSER] Per Unit Routine Peripheral IV Insertion Adult [OM.PC] Routine Resuscitation Status Routine 09/18/21 15:00 Lactated Ringers [Ringers, Lactated] 1,000 ml IV ASDIRECTED Oxytocin/0.9 % Sodium Chloride [Oxytocin 30 Unit in NS 0.9% 500 ML Premix] 30 unit in 500 ml IV TITRATE Oxytocin/0.9 % Sodium Chloride [Oxytocin 30 Unit in NS 0.9% 500 ML Premix] 30 unit in 500 ml IV TITRATE Medication Administration Instruction [OM.PC] Q3H
[2021-09-19] MEDS ORDERED: Lanolin 100% Cream 7 GM Tube TOP PRN (03:21)
[2021-09-19] MEDS ORDERED: Methylergonovine 0.2 MG/1 ML Amp IM PRN (03:21)
[2021-09-19] MEDS ORDERED: Tranexamic Acid 1,000 MG in Sodium Chloride 0.9% 100 ML IV PRN (03:21)
[2021-09-19] MEDS ORDERED: Benzocaine/Menthol 20%-0.5% Spray 78 GM Cannister TOP PRN (03:21)
[2021-09-19] MEDS ORDERED: Witch Hazel Medicated Pads 40/Jar TOP PRN (03:21)
[2021-09-19] MEDS ORDERED: Ibuprofen 400 MG Tab PO PRN (03:21)
[2021-09-19] MEDS ORDERED: Bisacodyl 10 MG Supp RECTAL PRN (03:21)
[2021-09-19] MEDS ORDERED: Docusate Sodium 100 MG Cap PO PRN (03:21)
[2021-09-19] MEDS ORDERED: Acetaminophen 500 MG Tab PO PRN ×2 (03:21)
--- NOTE | 2021-09-19 04:42 | OR ---
SURGEON: Ashley Orantes M.D. DATE OF PROCEDURE: 09/19/2021 PREOPERATIVE DIAGNOSES: 38 and 3/7 weeks' intrauterine , premature rupture of membranes with induction of labor, group B strep negative. POSTOPERATIVE DIAGNOSES: 38 and 3/7 weeks' intrauterine , premature rupture of membranes with induction of labor, group B strep negative. PROCEDURE: Cytotec, Pitocin induction of labor, term spontaneous vaginal delivery. PRIMARY SURGEON: Ashlye Orantes M.D. ANESTHESIA: Epidural. ESTIMATED BLOOD LOSS: Less than 200 mL. FINDINGS: Liveborn female. scores 9 and 10, weight pending. Placenta spontaneous, Briggs intact with 3 vessels. Perineum intact. COMPLICATIONS: None known. DISPOSITION: Mother and baby in LDR in good condition. BRIEF HISTORY: This is a 30-year-old female, G2, P1-0-0-1. She presents at 38 2/7 weeks' gestation, spontaneous rupture of membranes at 4:30 a.m., clear fluid noted. She presented to clinic later in the day with gross rupture, positive AmniSure. She was sent to Labor and Delivery. She was 1 to 2 cm, 50% effaced, -1 station. She received a single dose of Cytotec, and 6 hours later, she was 2 to 3 cm dilated. She had category 1 heart tones. She was started on Pitocin, which was continued up to a maximum of 60 milliunits per minute. At that point, she did progress to complete. DESCRIPTION OF PROCEDURE: With the patient in dorsal lithotomy position, under adequate epidural analgesia, the patient pushed over 3 contractions to a 5+ station, at which time the head was delivered spontaneously and atraumatically over the perineum with support with subsequent delivery of the infant's shoulders and body without any difficulty. The infant was bulb suctioned by nose and mouth, and after 1 minute, the cord was doubly clamped and cut, and the infant was handed to the mother in the presence of the nurse attending delivery. The was a liveborn female, scores 9 and 10, weight pending. Cord blood was collected for cord ABGs as well as routine cord blood sampling. Pitocin was initiated after delivery of the to assist with delivery of the placenta which was delivered spontaneously, Briggs intact, with 3 vessels. Upon inspection the pelvis and perineum, there were no periurethral, vaginal sidewall, cervical, rectal, or perineal lacerations. EBL was less than 200 mL. There were no known complications. Mother and baby remained in LDR in good condition. MARLEE ALLISON /[id number] MTDD
[2021-09-19] MEDS: Ibuprofen 800 MG Tab PO PRN ×2 (09:03→14:27)
--- NOTE | 2021-09-19 13:24 | PCM48HPAN ---
Post Anesthesia Note - EVALUATION WITHIN 48HRS OF ANESTHETIC Vital Signs in Normal Range: Yes Patient Participated in Evaluation: Yes Respiratory Function Stable: Yes Airway Patent: Yes Cardiovascular Function Stable: Yes Hydration Status Stable: Yes Pain Control Satisfactory: Yes Nausea and Vomiting Control Satisfactory: Yes Mental Status Recovered: Yes Vital Signs: Last Vital Signs Temp 36.1 C 09/19/21 08:30 Pulse 56 L 09/19/21 08:30 Resp BP 132/80 09/19/21 08:30 Pulse Ox - COMMENTS/OBSERVATIONS Free Text/Narrative:: Pt states to being satisfied with epidural, denies signs and symptoms of infection or neurological compromise, and states to being able to walk with no weakness.
[2021-09-20] MEDS: Ibuprofen 800 MG Tab PO PRN ×2 (00:04→06:29)
--- NOTE | 2021-09-20 09:22 | PCM.PNPP ---
- General Info Date of Service: 09/20/21 Functional Status: Reports: Pain Controlled, Tolerating Diet, Ambulating, Urinating - Review of Systems General: Reports: Fatigue. Denies: Fever, Weakness Pulmonary: Denies: Shortness of Breath Cardiovascular: Denies: Chest Pain, Palpitations, Lightheadedness Gastrointestinal: Denies: Abdominal Pain, Nausea, Vomiting Genitourinary: Denies: Flank Pain Musculoskeletal: Reports: No Symptoms Skin: Reports: No Symptoms Neurological: Reports: No Symptoms Psychiatric: Reports: No Symptoms - General Info Date of Service: 09/20/21 - Patient Data Vital Signs - Most Recent: Last Vital Signs Temp 36.4 C 09/20/21 08:00 Pulse 66 09/20/21 08:00 Resp 18 09/20/21 08:00 BP 120/77 09/20/21 08:00 Pulse Ox 97 09/20/21 08:00 Weight - Most Recent: 78.018 kg Lab Results - Last 24 Hours: Laboratory Results - last 24 hr 09/20/21 Range/Units 05:04 Hgb 9.1 L (12.0-16.0) g/dL Hct 26.7 L (36.0-46.0) % Med Orders - Current: Current Medications Acetaminophen (Acetaminophen 500 Mg Tab) 500 mg PO Q4H PRN PRN Reason: Pain (mild 1-3) Acetaminophen (Acetaminophen 500 Mg Tab) 1,000 mg PO Q4H PRN PRN Reason: Pain (mild 1-3) Last Admin: 09/20/21 08:56 Dose: 1,000 mg Documented by: Benzocaine/Menthol (Benzocaine/Menthol 20%-0.5% [place] 78 Gm Cannister) 78 gm TOP ASDIRECTED PRN PRN Reason: Perineal Comfort Measure Last Admin: 09/19/21 07:43 Dose: 1 can Documented by: Bisacodyl (Bisacodyl 10 Mg Supp) 10 mg RECTAL ONETIME PRN PRN Reason: Constipation Docusate Sodium (Docusate Sodium 100 Mg Cap) 100 mg PO Q12H PRN PRN Reason: Constipation Last Admin: 09/20/21 08:56 Dose: 100 mg Documented by: Emollient Ointment (Lanolin 100% Cream 7 Gm Tube) 0 gm TOP ASDIRECTED PRN PRN Reason: Sore Nipples Last Admin: 09/19/21 09:03 Dose: 1 tube Documented by: Tranexamic Acid 1,000 mg/ (Sodium Chloride) 110 mls @ 660 mls/hr IV ONETIME PRN PRN Reason: Bleeding Ibuprofen (Ibuprofen 400 Mg Tab) 400 mg PO Q4H PRN PRN Reason: Pain (mild 1-3) Ibuprofen (Ibuprofen 800 Mg Tab) 800 mg PO Q6H PRN PRN Reason: Cramping Last Admin: 09/20/21 06:29 Dose: 800 mg Documented by: Methylergonovine Maleate (Methylergonovine 0.2 Mg/1 Ml Amp) 0.2 mg IM ONETIME PRN PRN Reason: Excessive Vaginal Bleeding Witch Maeve (Witch Maeve Medicated Pads 40/Jar) 1 pad TOP ASDIRECTED PRN PRN Reason: comfort care Last Admin: 09/19/21 07:43 Dose: 1 tub Documented by: Discontinued Medications Butorphanol Tartrate (Butorphanol 1 Mg/Ml Sdv) 1 mg IVPUSH Q1H PRN PRN Reason: Pain (severe 7-10) Last Admin: 09/18/21 20:30 Dose: 1 mg Documented by: Carboprost Tromethamine (Carboprost Tromethamine 250 Mcg/1 Ml Amp) 250 mcg IM ASDIRECTED PRN PRN Reason: Post Hemorrhage Ephedrine Sulfate (Ephedrine 50 Mg/Ml Sdv) 10 mg IVPUSH Q1M PRN PRN Reason: Hypotension Ephedrine Sulfate (Ephedrine 50 Mg/Ml Sdv) Confirm Administered Dose 50 mg .ROUTE .STK-MED ONE Stop: 09/18/21 22:53 Oxytocin/Sodium Chloride (Oxytocin 30 Unit In Ns 0.9% 500 Ml Premix) 30 unit in 500 mls @ 999 mls/hr IV TITRATE DOTTIE Tranexamic Acid 1,000 mg/ (Sodium Chloride) 110 mls @ 660 mls/hr IV ONETIME PRN PRN Reason: Bleeding Oxytocin/Sodium Chloride (Oxytocin 30 Unit In Ns 0.9% 500 Ml Premix) 30 unit in 500 mls @ 2 mls/hr IV TITRATE DOTTIE; Protocol Last Titration: 09/19/21 03:09 Dose: 500 munits/min, 500 mls/hr Documented by: Lactated Ringer's (Ringers, Lactated) 1,000 mls @ 150 mls/hr IV ASDIRECTED DOTTIE Last Admin: 09/18/21 23:32 Dose: 150 mls/hr Documented by: Ropivacaine (Naropin 0.2%) Confirm Administered Dose 200 mls @ as directed .ROUTE .[facility]-MED ONE Stop: 09/18/21 21:16 Last Admin: 09/18/21 23:29 Dose: Not Given Documented by: Sodium Chloride (Normal Saline) Confirm Administered Dose 20 mls @ as directed .ROUTE .[facility]-MED ONE Stop: 09/18/21 22:53 Lidocaine HCl (Lidocaine 1% 50 Ml Mdv) 50 ml INJECT ONETIME PRN PRN Reason: Laceration repair Methylergonovine Maleate (Methylergonovine 0.2 Mg/1 Ml Amp) 0.2 mg IM ASDIRECTED PRN PRN Reason: Post Hemorrhage Miscellaneous Medication (Phenylephrine Hcl In 0.9% Nacl 1 Mg/10 Ml Syringe) 0.1 mg IVPUSH Q1M PRN PRN Reason: Hypotension Misoprostol (Misoprostol 200 Mcg Tab) 200 mcg PO ONETIME PRN PRN Reason: Post Hemorrhage Misoprostol (Misoprostol 25 Mcg (1/4 Of 100 Mcg) Tab) 25 mcg VAG ONETIME PRN PRN Reason: Cervical Ripening Last Admin: 09/18/21 15:52 Dose: 25 mcg Documented by: Nalbuphine HCl (Nalbuphine 10 Mg/1 Ml Vial) 10 mg IVPUSH Q1H PRN PRN Reason: Pain (severe 7-10) Ondansetron HCl (Ondansetron 4 Mg/2 Ml Sdv) 4 mg IVPUSH Q6H PRN PRN Reason: Nausea/Vomiting Last Admin: 09/18/21 22:59 Dose: 4 mg Documented by: Ondansetron HCl (Ondansetron 4 Mg/2 Ml Sdv) Confirm Administered Dose 4 mg .ROUTE .[facility]-MED ONE Stop: 09/18/21 22:58 Ropivacaine (Ropivacaine/Pf 400 Mg/200 Ml Medical Delivery Driver) 400 mg EPIDUR ASDIRECTED DOTTIE Sodium Chloride (Sodium Chloride 0.9% 10 Ml Syringe) 10 ml FLUSH ASDIRECTED PRN PRN Reason: Keep Vein Open Sodium Chloride (Sodium Chloride 0.9% 2.5 Ml Syringe) 2.5 ml FLUSH ASDIRECTED PRN PRN Reason: Keep Vein Open Sodium Chloride (Sodium Chloride 0.9% 10 Ml Sdv) 10 ml IV ASDIRECTED PRN PRN Reason: IV Use Sterile Water (Water For Irrigation,Sterile 1,000 Ml Container) 1,000 ml IRR ASDIRECTED PRN PRN Reason: delivery Last Admin: 09/19/21 07:43 Dose: 1,000 ml Documented by: Terbutaline Sulfate (Terbutaline 1 Mg/Ml Sdv) 0.25 mg SUBCUT ASDIRECTED PRN PRN Reason: Tacysystole - Infant Interaction Disposition, : [facility] in Room with Family Interaction: Holding Infant Infant Feeding: Breastfed Infant; Nursed Well Support Person: Significant Other - Recovery Exam Fundal Tone: Firm Fundal Level: 1 Fingerbreadths Below Umbilicus Fundal Placement: Midline Lochia Amount: Scant Lochia Color: Rubra/Red Perineum Description: Intact, Minimal Bruising/Swelling Episiotomy/Laceration: None Bladder Status: Voiding Urinary Elimination: Voided - Exam General: Alert, Oriented Lungs: Normal Respiratory Effort Cardiovascular: Regular Rate, Regular Rhythm GI/Abdominal Exam: Normal Bowel Sounds, Soft Extremities: Pedal Edema (trace). No: Erica's Sign Skin: Warm, Dry, Intact Neurological: No New Focal Deficit Psy/Mental Status: Alert, Normal Affect, Normal Mood - Problem List & Annotations (1) Vaginal delivery SNOMED Code(s): 801989882 Code(s): O80 - ENCOUNTER FOR FULL-TERM UNCOMPLICATED DELIVERY Status: Acute Current Visit: Yes - Problem List Review Problem List Initiated/Reviewed/Updated: Yes - My Orders Last 24 Hours: My Active Orders 09/20/21 09:18 Ready for Discharge [RC] PER UNIT ROUTINE - Assessment Assessment:: PPD 1 status post - Plan Plan:: Patient doing well overall. VS and labs are reassuring. Patient would like to go home. Discharge instructions reviewed. Follow up at [facility] 4 weeks. Discharge to home today.
== END 2021-09-20 11:45 | disposition home or self-care (01) | DRG 560 ==
LOC: MW.OBCHECK 14:34 → MW.OB 14:56 → OBSVTOIN 09-19 03:22 → MW.OB 09-19 09:00
PROVIDERS: ADMIT Obstetrics & Gynecology; ATTEND Obstetrics & Gynecology
PROC: 10E0XZZ Delivery of Products of Conception, External Approach (ICD-10-PCS; principal; 2021-09-19)
PROC: 3E0P7VZ Introduction of Hormone into Female Reproductive, Via Natural or Artificial Opening (ICD-10-PCS; 2021-09-19)
PROC: 3E033VJ Introduction of Other Hormone into Peripheral Vein, Percutaneous Approach (ICD-10-PCS; 2021-09-19)
PROC: 3E0R3BZ Introduction of Anesthetic Agent into Spinal Canal, Percutaneous Approach (ICD-10-PCS; 2021-09-19)
PROC: 00HU33Z Insertion of Infusion Device into Spinal Canal, Percutaneous Approach (ICD-10-PCS; 2021-09-19)
DX: O42.02 Full-term premature rupture of membranes, onset of labor within 24 hours of rupture (principal); Z3A.38 38 weeks gestation of pregnancy; Z37.0 Single live birth
CPT/HCPCS: 01967; 36415; 51702; 59025; 59409; 82803; 85014; 85018; 85027; 86592; 86850; 86900; 86901; A9270-GY; J0595; J2405; J2590; J2795; J7120

== ENCOUNTER 2024-07-01 19:25 | Emergency (ER) | payer BC ==
[2024-07-01] MEDS: EPINEPHrine 1 MG/1 ML Amp IM ONE (19:46)
[2024-07-01] MEDS: Famotidine 20 MG/2 ML SDV IVPUSH ONE (19:46)
[2024-07-01] MEDS: methylPREDNISolone Sodium Succinate 125 MG/2 ML SDV IVPUSH ONE (19:47)
== END 2024-07-02 | disposition home or self-care (01) ==
LOC: MW.ED 19:25
DX: T63.441A Toxic effect of venom of bees, accidental (unintentional), initial encounter (principal); E66.9 Obesity, unspecified; Z86.16 Personal history of COVID-19; Z79.899 Other long term (current) drug therapy; Z88.1 Allergy status to other antibiotic agents; Z75.8 Other problems related to medical facilities and other health care; Z68.24 Body mass index [BMI] 24.0-24.9, adult
CPT/HCPCS: 96372; 96374; 96375; 99283; J0171; J2919; J3490; 99284